=== PATIENT | female | born 1995 | race Caucasian/White ===

== ENCOUNTER 2021-09-09 10:08 | Emergency (ER) | payer OTHER ==
[2021-09-09 10:19] VITALS: BP 110/65; PULSE 62; RESP 16; TEMP 97.4
--- NOTE | 2021-09-09 11:10 | ED ---
General Adult HPI - General Chief complaint: Abdominal Pain Stated complaint: lower abd pain Time Seen by Provider: 09/09/21 11:00 Source: patient, family, RN notes reviewed, old records reviewed Mode of arrival: ambulatory Limitations: no limitations - History of Present Illness Initial comments: This is a pleasant well-appearing 25-year-old female that presents with left lower quadrant abdominal pain. Patient states that she kept this morning to go to the bathroom and felt a sharp pain in her left groin. She states that after she urinated pain started to resolve. She describes the pain as a dull ache at this point. She denies any dysuria or vaginal discharge. She states she is due to start her period soon, her last period was August 11. She has no medical history, she states she takes Adderall when she is studying. She is a nonsmoker. No previous medical or surgical history. -: hour(s) Location: abdomen (LLQ pain), left Severity scale (1-10): 1 Quality: dull Consistency: constant Associated Symptoms: denies other symptoms Treatments Prior to Arrival: none - Related Data Allergies Allergy/AdvReac Type Severity Reaction Status Date / Time No Known Allergies Allergy Verified 09/09/21 10:19 Review of Systems ROS Statement: Those systems with pertinent positive or pertinent negative responses have been documented in the HPI. ROS Other: All systems not noted in ROS Statement are negative. Past Medical History Past Medical History: No Reported History History of Any Multi-Drug Resistant Organisms: None Reported Past Surgical History: No Surgical Hx Reported Past Psychological History: No Psychological Hx Reported Smoking Status: Never smoker Past Alcohol Use History: Occasional Past Drug Use History: None Reported General Exam Limitations: no limitations General appearance: alert, in no apparent distress Head exam: Present: atraumatic, normocephalic Eye exam: Present: normal appearance. Absent: scleral icterus, conjunctival injection Respiratory exam: Present: normal lung sounds bilaterally. Absent: respiratory distress, accessory muscle use Cardiovascular Exam: Present: regular rate, normal rhythm, normal heart sounds GI/Abdominal exam: Present: soft, tenderness (left groin). Absent: distended, guarding, rebound, rigid Extremities exam: Present: full ROM, normal capillary refill. Absent: tenderness, pedal edema Back exam: Present: normal inspection, full ROM. Absent: tenderness, CVA t enderness (R), CVA tenderness (L), rash noted Neurological exam: Present: alert, oriented X3, normal gait Psychiatric exam: Present: normal affect, normal mood Skin exam: Present: warm, dry, normal color. Absent: cyanosis, diaphoretic Course Vital Signs 09/09/21 10:18 Temperature 97.4 F L Pulse Rate 62 Respiratory 16 Rate Blood Pressure 110/65 O2 Sat by Pulse 100 Oximetry Medical Decision Making - Medical Decision Making Patient offered pain medication and declined. No evidence of ovarian torsion, no evidence of acute pelvic process. UA is negative for infection no evidence of blood. Patient is due to start her menses. This could be likely musculoskeletal versus premenstrual pain. Instructed to follow-up with her primary care doctor return to the emergency room with any new or concerning symptoms. Patient and family members are agreeable to this plan of care. Case discussed with Dr. Arboleda. - Lab Data Lab Results 09/09/21 09/09/21 Range/Units 10:30 11:55 Urine Color Colorless Urine Appearance Clear (Clear) Urine pH 6.5 (5.0-8.0) Ur Specific [place] 1.006 (1.001-1.035) Urine Protein Negative (Negative) Urine Glucose (UA) Negative (Negative) Urine Ketones Negative (Negative) Urine Blood Negative (Negative) Urine Nitrite Negative (Negative) Urine Bilirubin Negative (Negative) Urine Urobilinogen <2.0 (<2.0) mg/dL Ur Leukocyte Esterase Negative (Negative) Urine HCG, Qual Not Detected (Not Detectd) Disposition Clinical Impression: Abdominal pain Disposition: HOME SELF-CARE Condition: Good Instructions (If sedation given, give patient instructions): Abdominal Pain (ED) Additional Instructions: Your urinalysis shows no infection or blood. Pelvic ultrasound shows no evidence of ovarian torsion. Take Tylenol and or Motrin as needed for pain. Use warm compresses to the area. Return to the emergency room with any new or concerning symptoms including increased pain, persistent nausea, vomiting or fevers. If you develop right lower quadrant pain there is a concern for appendicitis and you should be reevaluated. Follow-up with your primary care doctor next week. Is patient prescribed a controlled substance at d/c from ED?: No Referrals: Gentry Escalera MD [Primary Care Provider] - 1-2 days Time of Disposition: 13:27
[2021-09-09 11:53] LABS: Appearance,Urine Clear (Clear); Bilirubin,Urine Negative (Negative); Blood,Urine Negative (Negative); Color,Urine Colorless; Glucose,Urine (UA) Negative (Negative); Ketones,Urine Negative (Negative); Leukocyte Esterase,Urine Negative (Negative); Nitrite,Urine Negative (Negative); PH, Urine 6.5 (5.0-8.0); Protein,Urine Negative (Negative); Specific Gravity,Urine 1.006 (1.001-1.035); Urobilinogen,Urine <2.0 mg/dL (<2.0)
--- NOTE | 2021-09-09 12:57 | US ---
EXAMINATION TYPE: US transvaginal DATE OF EXAM: 09/09/2021 COMPARISON: NONE CLINICAL HISTORY: ovarian torsion. LLQ pain x 4 hours. TECHNIQUE: Transvaginal sonographic images of the pelvis were acquired Date of LMP: 08/18/21 EXAM MEASUREMENTS: Uterus: 6.7 x 6.7 x 3.1 cm Endometrial Stripe: 0.75 cm Right Ovary: 3.5 x 2.4 x 1.6 cm Left Ovary: 3.0 x 2.7 x 2.0 cm 1. Uterus: Anteverted wnl 2. Endometrium: wnl 3. Right Ovary: Complex cyst seen measuring 1.1 x 0.8 x 0.6 cm 4. Left Ovary: wnl Spectral, color and waveform doppler imaging shows good arterial and venous flow within the ovaries ; there is no evidence for ovarian torsion. 5. Bilateral Adnexa: wnl 6. Posterior cul-de-sac: Small amount of fluid seen IMPRESSION: 1. No evidence for acute pelvic process. 2. Appropriate Spectral venous and arterial waveforms to the ovaries. 3.
== END 2021-09-09 13:38 | disposition home or self-care (01) ==
LOC: EC 10:08
DX: R10.32 Left lower quadrant pain (principal); Z72.89 Other problems related to lifestyle
CPT/HCPCS: 76830; 81003; 81025; 93975; 99284